=== PATIENT | female | born 1985 | race Caucasian/White ===

== ENCOUNTER → 2017-01-13 | Outpatient (CLI) | payer BC | LOC: RAD 09:20 | PROVIDERS: ATTEND Family Medicine | DX: Z97.5 Presence of (intrauterine) contraceptive device (principal) | CPT/HCPCS: 76830; 76856 ==

== ENCOUNTER → 2017-03-12 | Outpatient (CLI) | payer BC ==
[~2017-03-12] MED LIST: CALC500T7 PO; DESO1TAB PO; DOCU-243 PO; FAMO20TA45 PO; HYDR-3702 PO; IBUP-1772 PO; LANO28OI TOP; NORG1TAB14 PO; PREN1TAB79 PO; SERT100T8 PO
[2017-03-12 12:55] LABS: BASOPHILS % (AUTO) 0 % (0-2); EOSINOPHILS # (AUTO) 0.1 10^3uL; EOSINOPHILS % (AUTO) 1 % (0-4); LYMPHOCYTES # (AUTO) 2.7 X10^3; MEAN CORPUSCULAR HEMOGLOBIN 29.4 PG (26.0-34.0); MEAN CORPUSCULAR HGB CONC 33.5 g/dL (31.0-37.0); MEAN CORPUSCULAR VOLUME 88 FL (80-100); MEAN PLATELET VOLUME 9.8 FL (6.0-9.5); MONOCYTES # (AUTO) 0.4 X10^3; MONOCYTES % (AUTO) 6 % (3-11); NEUTROPHILS # (AUTO) 4.4 X10^3; NEUTROPHILS % (AUTO) 58 % (51-67); PLATELET COUNT 224 10^3uL (150-450); WHITE BLOOD COUNT 7.63 10^3uL (4.0-11.0)
[2017-03-12 13:04] LABS: ALBUMIN 4.1 g/dL (3.4-5.0); TOTAL PROTEIN 7.4 g/dL (6.4-8.5)
== END ==
LOC: LAB 12:39
PROVIDERS: ATTEND Obstetrics & Gynecology
DX: N93.8 Other specified abnormal uterine and vaginal bleeding (principal); T83.39XA Other mechanical complication of intrauterine contraceptive device, initial encounter
CPT/HCPCS: 36415; 80053; 85025

== ENCOUNTER 2017-03-17 07:52 | Day surgery (SDC) | payer BC ==
[~2017-03-17] VITALS: Ht 165.1 cm; Wt 65.0 kg
[~2017-03-17 07:52] MED LIST changes: -DESO1TAB PO; -HYDR-3702 PO; +LACTATED RINGERS 1,000 ML IV SCH; +SODIUM CHLORIDE FLUSH 3 ML SYR IV PRN
[2017-03-17 08:02] VITALS: BP 124/79
[2017-03-17] MEDS ORDERED: ALFENTANIL 500 MCG/ML (ALFENTA) 5 ML AMP IV ONE (08:12)
[2017-03-17] MEDS ORDERED: MIDAZOLAM 2 MG/2 ML (VERSED) VIAL ONE (08:12)
[2017-03-17] MEDS ORDERED: PROPOFOL 20 ML IV ONE (08:13)
[2017-03-17] MEDS ORDERED: BUPIVACAINE/EPINEPHRINE 0.5%-1:200,000 (MARCAINE) 30 ML VIAL INJ ONE (09:21)
[2017-03-17] MEDS ORDERED: LIDOCAINE 1% (XYLOCAINE) 20 ML VIAL ONE (09:22)
[2017-03-17] MEDS ORDERED: diphenhydrAMINE 50 MG/ML INJ (BENADRYL) ONE (10:02)
[2017-03-17] MEDS ORDERED: ONDANSETRON 2 MG/ML (Z0FRAN) 2 ML VIAL ONE (10:02)
[2017-03-17] MEDS ORDERED: KETOROLAC 60 MG/2 ML (TORADOL) VIAL IM ONE (10:44)
[2017-03-17] MEDS ORDERED: morphine INJ 4 MG/ML 1 ML SYRINGE ONE (10:48)
[2017-03-17] MEDS ORDERED: HYDROcodone/APAP 5 MG/325 MG (NORCO) TAB PO PRN (11:00)
--- NOTE | 2017-03-17 11:10 | Operative Report (E) ---
Operative Report (E) 03/17/17 11:08 Pre-Operative Diagnosis: Lost IUD strings and abnormal uterine bleeding Post-Operative Diagnosis: Same plus intra abdominal IUD Procedure: Hysteroscopy, diagnostic laparoscopy, removal of intra abdominal IUD Surgeon: Brandon Terminal System Operator: None Anesthesia: GETA EBL: 20cc Findings: Normal endometrium. Normal uterus and bilateral tubes. Mirena IUD in left colic gutter, between sigmoid and ovary. Small dense adhesions from sigmoid to ovary, but anatomy position normal. Mirena removed intact and discarded. TROY QUIROZ MD March 17, 2017 11:10
--- NOTE | 2017-03-17 11:12 | Discharge Instructions (E) ---
Discharge Instructions Instructions No restrictions at home. Call with severe pain, fevers or bleeding. Start new control (Desogen) next week any day. You will probably have a light period this week. Doctor's Appointment [address] Taylor Discharge Diet: TROY Alvarado MD March 17, 2017 11:12
[2017-03-17] MEDS ORDERED: HYDR-3702 PO (11:13)
[2017-03-17] MEDS ORDERED: DESO1TAB PO (11:13)
[2017-03-17 11:26] VITALS: BP 129/77
[2017-03-17 11:46] VITALS: BP 123/72
--- NOTE | 2017-03-17 12:55 | OPERATIVE REPORT ---
DATE OF OPERATION: 03/17/2017 PRE-OPERATIVE DIAGNOSIS: 1. Lost IUD strings. 2. Abnormal uterine bleeding. POST-OPERATIVE DIAGNOSIS: 1. Lost IUD strings. 2. Abnormal uterine bleeding. 3. Intraabdominal IUD. OPERATIVE PROCEDURE: 1. Hysteroscopy. 2. Diagnostic laparoscopy. 3. Removal of intrauterine IUD. SURGEON: Nelson Taylor MD [employer] PRINT[employer] MACHINIST: None ANESTHESIA: General endotracheal COMPLICATIONS: None ESTIMATED BLOOD LOSS: 20 mL SPECIMEN: None (the Mirena IUD was intact and discarded) FINDINGS: Intraoperatively the patient was noted to have a normal cervix and endometrial cavity on hysteroscopy. There was no scarring or defects noted. On laparoscopy the patient was noted to have an IUD retroperitonealized along the left colic gutter between the colon and the left ovary. There were mild dense adhesions from the sigmoid colon to the left ovary because of the inflammatory response. The bilateral tubes and ovaries appeared normal, as did the uterus. There were no defects along the uterus noted or scarring or injuries. A small amount of dense adhesions were left between the sigmoid colon and the left ovary due to the possible injury to colon with resection. These did not distort the anatomy in any way. DESCRIPTION OF PROCEDURE: After confirming the validity of the informed consent, the patient was transported to the operating suite where she was placed in the dorsal lithotomy position after general anesthesia was administered without event. The patient was sterilely prepped and draped in the usual fashion and her bladder was emptied with a straight catheter. A Tang cannula was placed on the cervix and the single tooth tenaculum to aid with intraoperative manipulation. A small infraumbilical incision was then made and a 5-mm trocar was placed under direct visualization with the diagnostic laparoscope intraperitoneally without difficulty. A pneumoperitoneum was created. The patient was placed in Trendelenburg and laparoscopy was carried out with the findings as noted above, including the IUD strings being noted in the ovarian fossa tracing up to the left colic gutter and ovary. The strings were grasped and a small amount of tension was placed allowing the IUD to slip from its retroperitoneal position and be removed completely intact. This was done through a left lower quadrant abdominal 5 mm trocar, which was placed without difficulty. Once the IUD was removed, a very small amount of lysis of adhesions was done along the left colic gutter, but the dense adhesions to the sigmoid colon, but it was felt that possible injury to the colon made further lysis of adhesions unnecessary. Anatomy was normal with normal bilateral tubes and uterus in appearance. The pelvis was irrigated slightly with normal saline and aspirated with Nezhat suction aspirator. The pneumoperitoneum was deflated and the 5-mm trocars were removed. The skin was closed with two 4-0 subcuticular Vicryl sutures and the incisions were infiltrated with 6 mL of 0.5% bupivacaine. The cervix was then released and found to be hemostatic. All needle, sponge and instruments were correct x2. The patient tolerated the procedure well and was transferred to PACU in good condition.
== END 2017-03-17 12:03 | disposition home or self-care (01) ==
LOC: ASC 07:52
PROVIDERS: ATTEND Obstetrics & Gynecology
DX: T83.32XA Displacement of intrauterine contraceptive device, initial encounter (principal); N93.9 Abnormal uterine and vaginal bleeding, unspecified; Y83.1 Surgical operation with implant of artificial internal device as the cause of abnormal reaction of the patient, or of later complication, without mention of misadventure at the time of the procedure
CPT/HCPCS: 58558; J1200; J1885; J2250; J2270; J2405; J7120